=== PATIENT | female | born 1945 | race Caucasian/White ===

== ENCOUNTER 2023-01-25 14:35 | Inpatient (IN) | payer MEDICARE, BC, SELFPAY ==
[2023-01-25] VITALS (7 sets, daily range): BP systolic 79–160; BP diastolic 50–68; PULSE 55–71; RESP 14–18; TEMP 36.6–37; O2SAT 95–97; BMI 41.1
--- NOTE | 2023-01-25 14:41 | ECG_ITS ---
Test Reason : weak/dizzy Blood Pressure : / mmHG Vent. Rate : 056 BPM Atrial Rate : 056 BPM P-R Int : 180 ms QRS Dur : 154 ms QT Int : 492 ms P-R-T Axes : 009 -39 -18 degrees QTc Int : 474 ms Sinus bradycardia Left axis deviation Right bundle branch block T wave abnormality, consider lateral ischemia Abnormal ECG No previous ECGs available Referred By: Anat Cry Electronically Signed By:MODE MENDIOLA MD
--- NOTE | 2023-01-25 14:42 | ED_ITS ---
HPI - Nausea/Vomiting/Diarrhea General Chief complaint: Nausea/Vomiting/Diarrhea <IVIS Waters Last Filed: 01/25/23 15:05> Stated complaint: dehydration/ ligheheaded <IVIS Waters Last Filed: 01/25/23 15:05> Time Seen by Provider: 01/25/23 15:06 <IVIS Waters Last Filed: 01/25/23 15:05> Source: patient and RN notes reviewed <IVIS Nieves Last Filed: 01/25/23 18:18> Mode of arrival: ambulatory <IVIS Nieves Last Filed: 01/25/23 18:18> Limitations: no limitations <IVIS Nieves Last Filed: 01/25/23 18:18> History of Present Illness HPI Narrative: This is a 78-year-old female, with past history of hypertension, hyperlipidemia, diabetes, GERD, who presents emergency department today with complaints of weakness and diarrhea x2 weeks. Patient reports that over the last 2 weeks she has noticed that she is unable to stand for long periods of time as she begins to feel weak throughout her entire body. She reports that several days ago because of this weakness and she had collapsed and was on the ground for approximately 2 hours until she was able to have assistance to get back up. She admits that at that time, she had chest pain, but is unable to report if this is because she was laying on her chest for two hours. She reports that she has not been having diarrhea every day however reports that every time she eats she often times has to run to the restroom. She reports that she has had a total of 3 episodes of diarrhea today, which is most amount of episodes of diarrhea she has had in one day. Denies any bloody or black stool. She denies any nausea, vomiting, or abdominal pain. She denies any fevers or chills. She is scheduled to have a herniated disc repair scheduled for next week. She has been trying [id number] Pepto-Bismol without any relief. No recent antibiotic use. No other complaints or concerns at this time. <IVIS Nieves Last Filed: 01/25/23 18:18> MD elicited complaint: diarrhea <IVIS Nieves Last Filed: 01/25/23 18:18> Description of vomiting: watery <IVIS Nieves - Last Filed: 01/25/23 18:18> Associated nausea: No <IVIS Nieves - Last Filed: 01/25/23 18:18> Associated abdominal pain: No <IVIS Nieves - Last Filed: 01/25/23 18:18> Location of pain: none <IVIS Nieves - Last Filed: 01/25/23 18:18> Exacerbating factors: eating <IVIS Nieves - Last Filed: 01/25/23 18:18> Relieving factors: none <IVIS Nieves - Last Filed: 01/25/23 18:18> Associated symptoms: denies other symptoms <VIIS Nieves - Last Filed: 01/25/23 18:18> Treatment prior to arrival: other OTC medicine <IVIS Nieves - Last Filed: 01/25/23 18:18> Related Data Allergies/Adverse reactions: Allergies Allergy/AdvReac Type Severity Reaction Status Date / Time Unable to Assess Allergy Verified 01/25/23 14:41 <IVIS Waters - Last Filed: 01/25/23 15:05> Review of Systems Review of Systems: Yes all other systems are reviewed and are negative <IVIS Nieves - Last Filed: 01/25/23 18:18> Gastrointestinal: Gastrointestinal: Denies nausea <IVIS Nieves - Last Filed: 01/25/23 18:18> PMF Past Medical History Surgical History: Surgical History Knee joint replacement status <IVIS Waters - Last Filed: 01/25/23 15:05> Social History Social History: Social History Alcohol intake: never Smoked in Last 30 Days: No Use of substances other than those prescribed or required for medical reasons: No Advance Directives: No Advance Directives Information Provided: No <IVIS Waters - Last Filed: 01/25/23 15:05> Physical Exam Vital Signs: Vital Signs: Last Vital Signs Temp 97.8 F 01/25/23 17:35 Pulse 71 01/25/23 17:39 Resp 14 01/25/23 17:35 BP 106/56 L 01/25/23 17:39 Pulse Ox 97 01/25/23 17:35 O2 Del Method Room Air 01/25/23 17:35 BMI result Body Mass Index 41.1 <IVIS Waters - Last Filed: 01/25/23 15:05> Vital Signs: Last Vital Signs Temp 97.8 F 01/25/23 17:35 Pulse 71 01/25/23 17:39 Resp 14 01/25/23 17:35 BP 106/56 L 01/25/23 17:39 Pulse Ox 97 01/25/23 17:35 O2 Del Method Room Air 01/25/23 17:35 BMI result Body Mass Index 41.1 <IVIS Nieves - Last Filed: 01/25/23 18:18> Appearance: Alert. Oriented X3. No acute distress. Eyes: Pupils equal, round and reactive to light. EOMI ENT: Pharynx normal. Dry mucous membranes, Uvula midline Neck: Normal inspection. Neck supple. CVS: Normal heart rate and rhythm. Pulses normal. S1-S2 regular, no murmurs rubs or gallops Respiratory: No respiratory distress. Breath sounds normal. Lungs clear auscultation bilaterally Abdomen: Soft and nontender. +BS x4 Skin: Skin warm and dry. Normal skin color. Normal skin turgor. No rashes. Extremities: No lower extremity edema. Neuro: Oriented X 3. No motor deficit. No sensory deficit. CN II-XII intact. <IVIS Nieves - Last Filed: 01/25/23 18:18> Course Course Course Narrative: RME - 78 y/o female with history of HTN, HLD, DM who presents to the ER from Urgent Care for evaluation of ongoing diarrhea for the last 2 weeks along with poor PO intake, weakness and lightheadedness. Also has intermittent central abdominal pains. BP 70/50s in triage. Nontoxic appearing. Plan: to go to treatment room now - labs, EKG, orthostatics, IVF and stool studies if able <IVIS Waters - Last Filed: 01/25/23 15:05> Reevaluation(s) Reevaluation #1: Creatinine 2.62, with a BUN of 59. Patient has never been here for baseline comparison. Likely pre renal acute kidney injury secondary to dehydration, patient medicated with bolus IV fluids. <IVIS Nieves - Last Filed: 01/25/23 18:18> Time: 15:57 <IVIS Nieves - Last Filed: 01/25/23 18:18> Reevaluation #2: Patient re-evaluated, blood pressure improved to 132/74. 1 L of IV fluids completed will be receiving 2nd liter. Pt is COVID+. Spoke to hospitalist who accepts transfer of care. <IVIS Nieves - Last Filed: 01/25/23 18:18> Time: 16:35 <IVIS Nieves - Last Filed: 01/25/23 18:18> Medications Administered Discontinued Medications Generic Name Dose Route Start Last Admin Trade Name Freq PRN Reason Stop Dose Admin Sodium Chloride 1,000 mls @ 999 mls/hr 01/25/23 14:45 01/25/23 16:45 Ns IVCONT 01/25/23 15:45 Infused .Q1H1M BETTY Infusion Sodium Chloride 1,000 mls @ 999 mls/hr 01/25/23 15:45 01/25/23 18:15 Ns IVCONT 01/25/23 17:45 Infused .Q1H1M BETTY Infusion <IVSI Waters - Last Filed: 01/25/23 15:05> Medications Administered Discontinued Medications Generic Name Dose Route Start Last Admin Trade Name Freq PRN Reason Stop Dose Admin Sodium Chloride 1,000 mls @ 999 mls/hr 01/25/23 14:45 01/25/23 16:45 Ns IVCONT 01/25/23 15:45 Infused .Q1H1M BETTY Infusion Sodium Chloride 1,000 mls @ 999 mls/hr 01/25/23 15:45 01/25/23 18:15 Ns IVCONT 01/25/23 17:45 Infused .Q1H1M BETTY Infusion <IVIS Nieves - Last Filed: 01/25/23 18:18> Medical Decision Making Medical Decision Making MDM Narrative: 78-year-old female presenting to the emergency department today with intermittent diarrhea and weakness x2 weeks. Patient's blood pressure hypotensive at 79/57, all other labs within normal limits. EKG with right bundle branch block with inverted T-waves in V1 through V5, also seen in lead III and AVF. She has no previous EKGs for comparison. Will perform cardiac workup. Plan: Labs, EKG, UA, stool studies obtained. IV hydration. <IVIS Nieves - Last Filed: 01/25/23 18:18> Differential Diagnosis Differential Diagnoses: The differential diagnosis associated with the presentation includes <IVIS Nieves - Last Filed: 01/25/23 18:18> Dehydration, acute kidney injury, C diff, diverticulitis, diverticulosis, diarrhea <IVIS Nieves - Last Filed: 01/25/23 18:18> Consult Healthcare Provider Management of the patient was discussed with: Hospitalist <IVIS Nieves - Last Filed: 01/25/23 18:18> Lab Data MDM Lab Attestation statement: I reviewed the patient's lab results. <IVIS Nieves - Last Filed: 01/25/23 18:18> Result Diagrams: 01/25/23 14:53 01/25/23 14:53 <IVIS Waters - Last Filed: 01/25/23 15:05> Labs: Lab Results 01/25/23 01/25/23 01/25/23 Range/Units 14:53 14:53 14:53 WBC 5.9 (4.8-10.8) X10*3/uL RBC 4.84 (4.20-5.50) X10*6/uL Hgb 13.2 (12.0-16.0) g/dl Hct 40.6 (37.0-47.0) % MCV 83.9 (80.0-98.0) fL MCH 27.3 (27.0-33.0) pg MCHC 32.5 (31.0-35.0) g/dl RDW 14.5 (11.0-16.0) % Plt Count 261 (160-400) X10*3/uL MPV 10.6 (9.4-12.3) fL Immature Gran % (Auto) 0.8 H (0.0-0.4) % Neut % (Auto) 67.9 (45-73) % Lymph % (Auto) 18.4 L (20-40) % [place] % (Auto) 10.7 (2-11) % Eos % (Auto) 1.7 (0-4) % Baso % (Auto) 0.5 (0-2) % Lymph # (Auto) 1.1 L (1.2-4.9) X10*3/uL [place] # (Auto) 0.6 (0.1-1.2) X10*3/uL Eos # (Auto) 0.1 (0.0-0.4) X10*3/uL Baso # (Auto) 0.0 (0.0-0.2) X10*3/uL Abs Immat Gran (auto) 0.05 H (0.00-0.03) X10*3/uL Absolute Neuts (auto) 4.0 (2.0-8.3) x10*3/uL Absolute Nucleated RBC 0.000 (0.0-0.012) X10*3/uL Nucleated RBC % (auto) 0.0 (0.0-0.2) /100WBC Sodium 135 (135-145) mmol/L Potassium 4.3 (3.3-5.1) mmol/L Chloride 98 (96-108) mmol/L Carbon Dioxide 24 (22-29) mmol/L Anion Gap 17 (12-20) BUN 59 H (9-16) mg/dL Creatinine 2.62 H (0.5-1.4) mg/dL Estim Creat Clear Calc 20.4 Estimated GFR 18 Random Glucose 198 H (60-115) mg/dL Calcium 8.9 (8.4-10.2) mg/dL Magnesium 2.3 (1.6-2.6) mg/dL Total Bilirubin 0.7 (0.0-1.0) mg/dL Direct Bilirubin 0.2 (0.0-0.5) mg/dL AST 27 (5-31) U/L ALT 13 (0-31) U/L Alkaline Phosphatase 56 (39-117) U/L Total Creatine Kinase 254 H (26-140) U/L Troponin I High Sens 18.0 H (<3.5-17.0) ng/L B-Natriuretic Peptide (<100) pg/mL Total Protein 7.6 (6.5-8.0) g/dL Albumin 4.3 (3.5-5.0) g/dL Lipase 24 (8-78) U/L Influenza Type A (PCR) (Negative) Influenza Type B (PCR) (Negative) RSV RNA Qual (PCR) (Negative) SARS-CoV-2 RNA (RT-PCR) (Negative) 01/25/23 01/25/23 01/25/23 Range/Units 15:31 15:31 15:31 WBC (4.8-10.8) X10*3/uL RBC (4.20-5.50) X10*6/uL Hgb (12.0-16.0) g/dl Hct (37.0-47.0) % MCV (80.0-98.0) fL MCH (27.0-33.0) pg MCHC (31.0-35.0) g/dl RDW (11.0-16.0) % Plt Count (160-400) X10*3/uL MPV (9.4-12.3) fL Immature Gran % (Auto) (0.0-0.4) % Neut % (Auto) (45-73) % Lymph % (Auto) (20-40) % [place] % (Auto) (2-11) % Eos % (Auto) (0-4) % Baso % (Auto) (0-2) % Lymph # (Auto) (1.2-4.9) X10*3/uL [place] # (Auto) (0.1-1.2) X10*3/uL Eos # (Auto) (0.0-0.4) X10*3/uL Baso # (Auto) (0.0-0.2) X10*3/uL Abs Immat Gran (auto) (0.00-0.03) X10*3/uL Absolute Neuts (auto) (2.0-8.3) x10*3/uL Absolute Nucleated RBC (0.0-0.012) X10*3/uL Nucleated RBC % (auto) (0.0-0.2) /100WBC Sodium (135-145) mmol/L Potassium (3.3-5.1) mmol/L Chloride (96-108) mmol/L Carbon Dioxide (22-29) mmol/L Anion Gap (12-20) BUN (9-16) mg/dL Creatinine (0.5-1.4) mg/dL Estim Creat Clear Calc Estimated GFR Random Glucose (60-115) mg/dL Calcium (8.4-10.2) mg/dL Magnesium (1.6-2.6) mg/dL Total Bilirubin (0.0-1.0) mg/dL Direct Bilirubin (0.0-0.5) mg/dL AST (5-31) U/L ALT (0-31) U/L Alkaline Phosphatase (39-117) U/L Total Creatine Kinase (26-140) U/L Troponin I High Sens (<3.5-17.0) ng/L B-Natriuretic Peptide 57 (<100) pg/mL Total Protein (6.5-8.0) g/dL Albumin (3.5-5.0) g/dL Lipase Cancelled (8-78) U/L Influenza Type A (PCR) NEGATIVE (Negative) Influenza Type B (PCR) NEGATIVE (Negative) RSV RNA Qual (PCR) NEGATIVE (Negative) SARS-CoV-2 RNA (RT-PCR) POSITIVE A (Negative) 01/25/23 Range/Units 17:39 WBC (4.8-10.8) X10*3/uL RBC (4.20-5.50) X10*6/uL Hgb (12.0-16.0) g/dl Hct (37.0-47.0) % MCV (80.0-98.0) fL MCH (27.0-33.0) pg MCHC (31.0-35.0) g/dl RDW (11.0-16.0) % Plt Count (160-400) X10*3/uL MPV (9.4-12.3) fL Immature Gran % (Auto) (0.0-0.4) % Neut % (Auto) (45-73) % Lymph % (Auto) (20-40) % [place] % (Auto) (2-11) % Eos % (Auto) (0-4) % Baso % (Auto) (0-2) % Lymph # (Auto) (1.2-4.9) X10*3/uL [place] # (Auto) (0.1-1.2) X10*3/uL Eos # (Auto) (0.0-0.4) X10*3/uL Baso # (Auto) (0.0-0.2) X10*3/uL Abs Immat Gran (auto) (0.00-0.03) X10*3/uL Absolute Neuts (auto) (2.0-8.3) x10*3/uL Absolute Nucleated RBC (0.0-0.012) X10*3/uL Nucleated RBC % (auto) (0.0-0.2) /100WBC Sodium (135-145) mmol/L Potassium (3.3-5.1) mmol/L Chloride (96-108) mmol/L Carbon Dioxide (22-29) mmol/L Anion Gap (12-20) BUN (9-16) mg/dL Creatinine (0.5-1.4) mg/dL Estim Creat Clear Calc Estimated GFR Random Glucose (60-115) mg/dL Calcium (8.4-10.2) mg/dL Magnesium (1.6-2.6) mg/dL Total Bilirubin (0.0-1.0) mg/dL Direct Bilirubin (0.0-0.5) mg/dL AST (5-31) U/L ALT (0-31) U/L Alkaline Phosphatase (39-117) U/L Total Creatine Kinase (26-140) U/L Troponin I High Sens 14.1 (<3.5-17.0) ng/L B-Natriuretic Peptide (<100) pg/mL Total Protein (6.5-8.0) g/dL Albumin (3.5-5.0) g/dL Lipase (8-78) U/L Influenza Type A (PCR) (Negative) Influenza Type B (PCR) (Negative) RSV RNA Qual (PCR) (Negative) SARS-CoV-2 RNA (RT-PCR) (Negative) <IVIS Waters - Last Filed: 01/25/23 15:05> Lab Results 01/25/23 01/25/23 01/25/23 Range/Units 14:53 14:53 14:53 WBC 5.9 (4.8-10.8) X10*3/uL RBC 4.84 (4.20-5.50) X10*6/uL Hgb 13.2 (12.0-16.0) g/dl Hct 40.6 (37.0-47.0) % MCV 83.9 (80.0-98.0) fL MCH 27.3 (27.0-33.0) pg MCHC 32.5 (31.0-35.0) g/dl RDW 14.5 (11.0-16.0) % Plt Count 261 (160-400) X10*3/uL MPV 10.6 (9.4-12.3) fL Immature Gran % (Auto) 0.8 H (0.0-0.4) % Neut % (Auto) 67.9 (45-73) % Lymph % (Auto) 18.4 L (20-40) % [place] % (Auto) 10.7 (2-11) % Eos % (Auto) 1.7 (0-4) % Baso % (Auto) 0.5 (0-2) % Lymph # (Auto) 1.1 L (1.2-4.9) X10*3/uL [place] # (Auto) 0.6 (0.1-1.2) X10*3/uL Eos # (Auto) 0.1 (0.0-0.4) X10*3/uL Baso # (Auto) 0.0 (0.0-0.2) X10*3/uL Abs Immat Gran (auto) 0.05 H (0.00-0.03) X10*3/uL Absolute Neuts (auto) 4.0 (2.0-8.3) x10*3/uL Absolute Nucleated RBC 0.000 (0.0-0.012) X10*3/uL Nucleated RBC % (auto) 0.0 (0.0-0.2) /100WBC Sodium 135 (135-145) mmol/L Potassium 4.3 (3.3-5.1) mmol/L Chloride 98 (96-108) mmol/L Carbon Dioxide 24 (22-29) mmol/L Anion Gap 17 (12-20) BUN 59 H (9-16) mg/dL Creatinine 2.62 H (0.5-1.4) mg/dL Estim Creat Clear Calc 20.4 Estimated GFR 18 Random Glucose 198 H (60-115) mg/dL Calcium 8.9 (8.4-10.2) mg/dL Magnesium 2.3 (1.6-2.6) mg/dL Total Bilirubin 0.7 (0.0-1.0) mg/dL Direct Bilirubin 0.2 (0.0-0.5) mg/dL AST 27 (5-31) U/L ALT 13 (0-31) U/L Alkaline Phosphatase 56 (39-117) U/L Total Creatine Kinase 254 H (26-140) U/L Troponin I High Sens 18.0 H (<3.5-17.0) ng/L B-Natriuretic Peptide (<100) pg/mL Total Protein 7.6 (6.5-8.0) g/dL Albumin 4.3 (3.5-5.0) g/dL Lipase 24 (8-78) U/L Influenza Type A (PCR) (Negative) Influenza Type B (PCR) (Negative) RSV RNA Qual (PCR) (Negative) SARS-CoV-2 RNA (RT-PCR) (Negative) 01/25/23 01/25/23 01/25/23 Range/Units 15:31 15:31 15:31 WBC (4.8-10.8) X10*3/uL RBC (4.20-5.50) X10*6/uL Hgb (12.0-16.0) g/dl Hct (37.0-47.0) % MCV (80.0-98.0) fL MCH (27.0-33.0) pg MCHC (31.0-35.0) g/dl RDW (11.0-16.0) % Plt Count (160-400) X10*3/uL MPV (9.4-12.3) fL Immature Gran % (Auto) (0.0-0.4) % Neut % (Auto) (45-73) % Lymph % (Auto) (20-40) % [place] % (Auto) (2-11) % Eos % (Auto) (0-4) % Baso % (Auto) (0-2) % Lymph # (Auto) (1.2-4.9) X10*3/uL [place] # (Auto) (0.1-1.2) X10*3/uL Eos # (Auto) (0.0-0.4) X10*3/uL Baso # (Auto) (0.0-0.2) X10*3/uL Abs Immat Gran (auto) (0.00-0.03) X10*3/uL Absolute Neuts (auto) (2.0-8.3) x10*3/uL Absolute Nucleated RBC (0.0-0.012) X10*3/uL Nucleated RBC % (auto) (0.0-0.2) /100WBC Sodium (135-145) mmol/L Potassium (3.3-5.1) mmol/L Chloride (96-108) mmol/L Carbon Dioxide (22-29) mmol/L Anion Gap (12-20) BUN (9-16) mg/dL Creatinine (0.5-1.4) mg/dL Estim Creat Clear Calc Estimated GFR Random Glucose (60-115) mg/dL Calcium (8.4-10.2) mg/dL Magnesium (1.6-2.6) mg/dL Total Bilirubin (0.0-1.0) mg/dL Direct Bilirubin (0.0-0.5) mg/dL AST (5-31) U/L ALT (0-31) U/L Alkaline Phosphatase (39-117) U/L Total Creatine Kinase (26-140) U/L Troponin I High Sens (<3.5-17.0) ng/L B-Natriuretic Peptide 57 (<100) pg/mL Total Protein (6.5-8.0) g/dL Albumin (3.5-5.0) g/dL Lipase Cancelled (8-78) U/L Influenza Type A (PCR) NEGATIVE (Negative) Influenza Type B (PCR) NEGATIVE (Negative) RSV RNA Qual (PCR) NEGATIVE (Negative) SARS-CoV-2 RNA (RT-PCR) POSITIVE A (Negative) 01/25/23 Range/Units 17:39 WBC (4.8-10.8) X10*3/uL RBC (4.20-5.50) X10*6/uL Hgb (12.0-16.0) g/dl Hct (37.0-47.0) % MCV (80.0-98.0) fL MCH (27.0-33.0) pg MCHC (31.0-35.0) g/dl RDW (11.0-16.0) % Plt Count (160-400) X10*3/uL MPV (9.4-12.3) fL Immature Gran % (Auto) (0.0-0.4) % Neut % (Auto) (45-73) % Lymph % (Auto) (20-40) % [place] % (Auto) (2-11) % Eos % (Auto) (0-4) % Baso % (Auto) (0-2) % Lymph # (Auto) (1.2-4.9) X10*3/uL [place] # (Auto) (0.1-1.2) X10*3/uL Eos # (Auto) (0.0-0.4) X10*3/uL Baso # (Auto) (0.0-0.2) X10*3/uL Abs Immat Gran (auto) (0.00-0.03) X10*3/uL Absolute Neuts (auto) (2.0-8.3) x10*3/uL Absolute Nucleated RBC (0.0-0.012) X10*3/uL Nucleated RBC % (auto) (0.0-0.2) /100WBC Sodium (135-145) mmol/L Potassium (3.3-5.1) mmol/L Chloride (96-108) mmol/L Carbon Dioxide (22-29) mmol/L Anion Gap (12-20) BUN (9-16) mg/dL Creatinine (0.5-1.4) mg/dL Estim Creat Clear Calc Estimated GFR Random Glucose (60-115) mg/dL Calcium (8.4-10.2) mg/dL Magnesium (1.6-2.6) mg/dL Total Bilirubin (0.0-1.0) mg/dL Direct Bilirubin (0.0-0.5) mg/dL AST (5-31) U/L ALT (0-31) U/L Alkaline Phosphatase (39-117) U/L Total Creatine Kinase (26-140) U/L Troponin I High Sens 14.1 (<3.5-17.0) ng/L B-Natriuretic Peptide (<100) pg/mL Total Protein (6.5-8.0) g/dL Albumin (3.5-5.0) g/dL Lipase (8-78) U/L Influenza Type A (PCR) (Negative) Influenza Type B (PCR) (Negative) RSV RNA Qual (PCR) (Negative) SARS-CoV-2 RNA (RT-PCR) (Negative) <IVIS Nieves Last Filed: 01/25/23 18:18> Independent Interpretation I performed an independent interpretation of an: EKG <IVIS Nieves Last Filed: 01/25/23 18:18> Interpretation: Sinus bradycardia with a ventricular rate of 56, RBBB - ST depression seen in V1-V5, ID interval 180ms, QRS [id number], QT/QTC 492/474. No previous EKG for comparison. <IVIS Nieves Last Filed: 01/25/23 18:18> Chronic Conditions Patient?s care impacted by: Diabetes and Hypertension <IVIS Nieves Last Filed: 01/25/23 18:18> Discharge Plan Discharge Clinical Impression: Acute kidney injury, COVID-19, Weakness <IVIS Waters Last Filed: 01/25/23 15:05> Patient Disposition: Admitted As Inpatient <IVIS Waters Last Filed: 01/25/23 15:05>
[2023-01-25 14:57] LABS: MANUAL DIFF FLAG NO
[2023-01-25 15:02] LABS: Basophils Percent Auto 0.5 % (0-2); Eosinophils Absolute Auto 0.1 X10*3/uL (0.0-0.4); Eosinophils Percent Auto 1.7 % (0-4); Hematocrit 40.6 % (37.0-47.0); Hemoglobin 13.2 g/dl (12.0-16.0); Imm Gran Abs Auto 0.05 X10*3/uL (0.00-0.03); Imm Gran Pct Auto 0.8 % (0.0-0.4); Lymphocytes Absolute Auto 1.1 X10*3/uL (1.2-4.9); Lymphocytes Percent Auto 18.4 % (20-40); Mean Corpuscular HGB Conc 32.5 g/dl (31.0-35.0); Mean Corpuscular Hemoglobin 27.3 pg (27.0-33.0); Mean Corpuscular Volume 83.9 fL (80.0-98.0); Mean Platelet Volume 10.6 fL (9.4-12.3); Monocytes Absolute Auto 0.6 X10*3/uL (0.1-1.2); Monocytes Percent Auto 10.7 % (2-11); Neutrophils Percent Auto 67.9 % (45-73); Platelet Count 261 X10*3/uL (160-400); Red Blood Count 4.84 X10*6/uL (4.20-5.50); Red Cell Distribution Width 14.5 % (11.0-16.0); White Blood Count 5.9 X10*3/uL (4.8-10.8)
[2023-01-25 15:16] LABS: Alanine Aminotransferase 13 U/L (0-31); Albumin Level 4.3 g/dL (3.5-5.0); Alkaline Phosphatase 56 U/L (39-117); Anion Gap 17 (12-20); Aspartate Amino Transferase 27 U/L (5-31); Bilirubin Direct 0.2 mg/dL (0.0-0.5); Bilirubin Total 0.7 mg/dL (0.0-1.0); Blood Urea Nitrogen 59 mg/dL (9-16); Calcium 8.9 mg/dL (8.4-10.2); Carbon Dioxide 24 mmol/L (22-29); Chloride 98 mmol/L (96-108); Creatinine Clr Calc Pharmacy 20.4; Estimated Glomerular Filt Rate 18; Glucose Random 198 mg/dL (60-115); Magnesium 2.3 mg/dL (1.6-2.6); Potassium 4.3 mmol/L (3.3-5.1); Sodium 135 mmol/L (135-145); Total Protein 7.6 g/dL (6.5-8.0)
[2023-01-25] MEDS: 0.9 % Sodium Chloride 1,000 ML 999 ML IVCONT ×3 (15:36→17:14)
[2023-01-25 15:59] LABS: B Type Natriuretic Peptide 57 pg/mL (<100)
[2023-01-25 16:04] LABS: Lipase 24 U/L (8-78)
[2023-01-25 16:19] LABS: Influenza A PCR NEGATIVE (Negative); Influenza B PCR NEGATIVE (Negative); Resp Syncy Virus RNA Qual PCR NEGATIVE (Negative); SARS COV2 PCR INHOUSE POSITIVE (Negative)
[2023-01-25 18:10] LABS: Troponin-I High Sensitivity 14.1 ng/L (<3.5-17.0)
--- NOTE | 2023-01-25 19:24 | PHA.MEDREC ---
MED REC COMPLETE, NO ISSUES Pharmacy Consult ? Medication Reconciliation Pharmacy has completed the medication reconciliation.
--- NOTE | 2023-01-25 20:13 | P.HPHOSP_ITS ---
Patient seen and examined, agree with the findings in the note below including assessment and plan. Patient comes in with generalized weakness, diarrhea, positive creatinine, found to have ALIZA. Diarrhea likely secondary to gastroenteritis in the setting of COVID infection. No respiratory symptoms. ALIZA secondary to dehydration, will treat with IV fluids. Patient does have evidence of abnormal EKG but present on previous EKGs obtained from [facility]. For full H&P please see below History of Present Illness Date of Service: 01/25/23 Attending physician on admission: Jody Fang Chief Complaint: Generalized weakness, diarrhea Pt is a 78-year-old female with a PMH significant for?HTN, HLD, CAD, vbk-cpmifrr-fdrmzyaif diabetes, and GERD who presents to the ED with?generalized weakness and diarrhea for the past 1-2 weeks. Patient states that she first began feeling weak, especially in her arms and legs. Has been unable to stand for long or cook herself a meal. Soon after developed non-bloody diarrhea that would come and go, usually 2-3 episodes per day. Diarrhea was on non-consecutive days, usually with 1-2 days between episodes. Pt has noted decreased p.o. inta ke, especially of solids. Says she feels lousy and has had all-over body aches. Pt also reports some burning with urination for past 1-2 weeks. Of note, pt states she tripped and fell in her kitchen two days ago. Did not have her phone and was on the ground for nearly two hours before she could raise herself. Denies fever, chills, nausea, vomiting. No abdominal pain. Denies chest pain/pressure, palpitations. No shortness of breath, difficulty breathing, cough. In the ED patient was afebrile but hypotensive at 79/57, improved to 106/56 after 1L IVF. Labs were significant for no leukocytosis, creatinine of 2.62, BUN 59, random glucose of 198, creatinine kinase of 254, initial troponin high at 18.0 with repeat down trending to 14.1. Patient tested positive for COVID. EKG demonstrated sinus bradycardia with a rate of 56, RBBB, ST depression in lead I, T-wave inversions in 3, AVF, V1-V5. Pt was treated with 2L IVF. Pt will be admitted to the hospital for treatment and further evaluation of ALIZA and generalized weakness. Review of Systems Review of Systems: Generalized weakness Diarrhea Myalgias Dysuria Denies fever, chills, nausea, vomiting, abdominal pain No shortness of breath, cough, difficulty breathing Denies chest pain/pressure, palpitations Yes all other systems are reviewed and are negative PENDING SALE TO [facility] Surgical History Knee joint replacement status Social History Alcohol intake: never Smoked in Last 30 Days: No Use of substances other than those prescribed or required for medical reasons: No Advance Directives: No Advance Directives Information Provided: No Meds Allergies Allergy/AdvReac Type Severity Reaction Status Date / Time Unable to Assess Allergy Verified 01/25/23 14:41 Active Medications: Current Medications Pharmacy Consult (Consult Rx Perform Med Rec) 1 each MISCELLANE ONCE PRN PRN Reason: Consult order Home Medications Medication Instructions Recorded Confirmed Last Taken Type amlodipine 5 mg tablet 5 mg PO BID 01/25/23 01/25/23 01/25/23 History atorvastatin 80 mg tablet 80 mg PO BEDTIME 01/25/23 01/25/23 01/24/23 History carvedilol 12.5 mg tablet 12.5 mg PO BID 01/25/23 01/25/23 01/25/23 History isosorbide mononitrate 30 mg 30 mg PO DAILY 01/25/23 01/25/23 01/25/23 History tablet,extended release 24 hr isosorbide mononitrate 60 mg 60 mg PO DAILY 01/25/23 01/25/23 01/25/23 History tablet,extended release 24 hr losartan 100 mg tablet 100 mg PO DAILY 01/25/23 01/25/23 01/25/23 History metformin 500 mg tablet,extended 500 mg PO BID 01/25/23 01/25/23 01/25/23 History release 24 hr nitroglycerin 0.4 mg sublingual 0.4 mg sublingual Q5M PRN Chest 01/25/23 01/25/23 Unknown History tablet Pain omeprazole 20 mg tablet,delayed 20 mg PO DAILY 01/25/23 01/25/23 01/25/23 History release Physical Exam Vital Signs and Narrative: Vital Signs: Last Vital Signs Temp 97.8 F 01/25/23 17:35 Pulse 71 01/25/23 17:39 Resp 14 01/25/23 17:35 BP 106/56 L 01/25/23 17:39 Pulse Ox 97 01/25/23 17:35 O2 Del Method Room Air 01/25/23 17:35 BMI result Body Mass Index 41.1 Constitutional: Alert, in no acute distress. Mental Status: Oriented to person, place and time. Eyes: Pupils are equal, round, and reactive to light. Ear, Nose, and Throat: Oropharynx clear, mucous membranes moist. Ears and nose without deformities. Trachea midline. Respiratory: Clear to auscultation bilaterally. No wheezing, rales, or rhonchi. Cardiovascular: S1, S2 regular. No murmurs, rubs, or gallops. Gastrointestinal: Abdomen soft, non-tender, non-distended. Normal bowel sounds. Neurologic: Cranial nerves II-XII are grossly intact bilaterally. No focal neurological deficits. Moves all extremities spontaneously. Skin: Bruising on right forearm. Musculoskeletal: No cyanosis or clubbing. Extremities: No edema. Psychiatric: Normal mood and affect. Results Labs 01/25/23 14:53 01/25/23 14:53 Labs: Laboratory Results - last 24 hr 01/25/23 01/25/23 01/25/23 14:53 14:53 14:53 MCV 83.9 MCH 27.3 MCHC 32.5 RDW 14.5 Plt Count 261 MPV 10.6 Immature Gran % (Auto) 0.8 H Neut % (Auto) 67.9 Lymph % (Auto) 18.4 L [place] % (Auto) 10.7 Eos % (Auto) 1.7 Baso % (Auto) 0.5 Lymph # (Auto) 1.1 L [place] # (Auto) 0.6 Eos # (Auto) 0.1 Baso # (Auto) 0.0 Abs Immat Gran (auto) 0.05 H Absolute Neuts (auto) 4.0 Absolute Nucleated RBC 0.000 Nucleated RBC % (auto) 0.0 Anion Gap 17 Estim Creat Clear Calc 20.4 Estimated GFR 18 Random Glucose 198 H Calcium 8.9 Magnesium 2.3 Total Bilirubin 0.7 Direct Bilirubin 0.2 AST 27 ALT 13 Alkaline Phosphatase 56 Total Creatine Kinase 254 H Troponin I High Sens 18.0 H B-Natriuretic Peptide Total Protein 7.6 Albumin 4.3 Lipase 24 Influenza Type A (PCR) Influenza Type B (PCR) RSV RNA Qual (PCR) SARS-CoV-2 RNA (RT-PCR) 01/25/23 01/25/23 01/25/23 15:31 15:31 15:31 MCV MCH MCHC RDW Plt Count MPV Immature Gran % (Auto) Neut % (Auto) Lymph % (Auto) [place] % (Auto) Eos % (Auto) Baso % (Auto) Lymph # (Auto) [place] # (Auto) Eos # (Auto) Baso # (Auto) Abs Immat Gran (auto) Absolute Neuts (auto) Absolute Nucleated RBC Nucleated RBC % (auto) Anion Gap Estim Creat Clear Calc Estimated GFR Random Glucose Calcium Magnesium Total Bilirubin Direct Bilirubin AST ALT Alkaline Phosphatase Total Creatine Kinase Troponin I High Sens B-Natriuretic Peptide 57 Total Protein Albumin Lipase Cancelled Influenza Type A (PCR) NEGATIVE Influenza Type B (PCR) NEGATIVE RSV RNA Qual (PCR) NEGATIVE SARS-CoV-2 RNA (RT-PCR) POSITIVE A 01/25/23 17:39 MCV MCH MCHC RDW Plt Count MPV Immature Gran % (Auto) Neut % (Auto) Lymph % (Auto) [place] % (Auto) Eos % (Auto) Baso % (Auto) Lymph # (Auto) [place] # (Auto) Eos # (Auto) Baso # (Auto) Abs Immat Gran (auto) Absolute Neuts (auto) Absolute Nucleated RBC Nucleated RBC % (auto) Anion Gap Estim Creat Clear Calc Estimated GFR Random Glucose Calcium Magnesium Total Bilirubin Direct Bilirubin AST ALT Alkaline Phosphatase Total Creatine Kinase Troponin I High Sens 14.1 B-Natriuretic Peptide Total Protein Albumin Lipase Influenza Type A (PCR) Influenza Type B (PCR) RSV RNA Qual (PCR) SARS-CoV-2 RNA (RT-PCR) Assessment and Plan (1) Acute kidney injury: Status: Acute (2) COVID-19: Status: Acute Plan Pt is a 78-year-old female with a PMH significant for?HTN, HLD, CAD, [id number] diabetes, and GERD who presents to the ED with?generalized weakness and diarrhea for the past 1-2 weeks. Patient will be admitted to the hospital for treatment and further evaluation of ALIZA, diarrhea, and generalized weakness. Diarrhea, generalized weakness Etiology unclear: Patient afebrile, no leukocytosis, not complaining of abdominal pain, abdominal exam benign Possibly secondary to gastroenteritis Check GI panel, C diff, UA Treat with IV fluids Clear liquid diet for now, advance as tolerated ALIZA Patient's creatinine 2.62 at time of presentation Likely secondary to dehydration from diarrhea, reduced p.o. intake Patient received 2 L of IVF in the ED Place on maintenance fluids: Lactated Ringer's Follow BMP Abnormal EKG EKG demonstrated sinus bradycardia with a rate of 56, RBBB, ST depression in lead I, T-wave inversions in 3, AVF, V1-V5 Pt without chest pain/pressure, palpitations No previous EKG to compare to Will get previous EKG from [facility] Admit to telemetry Dysuria Pt complains of dysuria for past 1-2 weeks, no CVA tenderness, fever, WBC Check UA Hold off on antibiotics for now COVID+ Pt tested positive for COVID Received initial two shots, no boosters Asymptomtic: no SOB, cough, difficulty breathing, not on supplemental O2 Admit with droplet and contact precautions Elevated troponins Initial troponin 18.0 with repeat down trending to 14.1 Likely type 2 demand ischemia in the presence of dehydration IVF CAD/Unstable angina Chronic, has been on her medications for years Continue isosorbide monitrate, nitroglycerin HTN BP soft, hold anti-hypertensives for now GERD Continue omeprazole HLD Continue statin Time Spent With Patient Time: Total time managing care of this patient today ____ minutes. Quality Stroke Does the patient have a stroke diagnosis?: No VTE Prior VTE?: No VTE Risk Level:: Medical - moderate - high VTE Device Contraindication: Treatment Not Indicated VTE Drug Contraindication: N/A - Med Ordered
--- NOTE | 2023-01-25 21:06 | MHC.EDTECH ---
Called [facility] Medical Records at 2106 per Annalisa Villafana to obtain records on patient,awaiting fax at this time.
[2023-01-25 21:30] LABS: Appearance Urine Cloudy; Color Urine Yellow; Glucose Urine UA Negative (Negative); Leukocyte Esterase Urine Trace (Negative); Nitrite Urine Negative (Negative); PH 5.5 (5.0-9.0); UMIC TRIGGER UACC YES; Urine Blood Trace (Negative); Urine Ketones Negative (Negative); Urine Protein Negative (Neg-Trace)
--- NOTE | 2023-01-25 21:33 | PC.NURSE ---
this rn assisted pt to bedside commode. urine and stool samples obtained and sent down to lab. pt repositioned back to bed. pt resting comfortably on back at this time. no new needs per pt
[2023-01-25 21:50] LABS: Bacteria Urine Trace (None Seen); WBC Urine 0-5 /HPF (0-5)
[2023-01-25] MEDS: Enoxaparin Sodium 30 MG/0.3 ML SYRINGE SUBCUT (21:59)
[2023-01-25] MEDS: Lactated Ringers 1,000 ML 100 ML IVCONT (21:59)
--- NOTE | 2023-01-25 22:10 | PC.NURSE ---
pt medicated according to mar. pt resting on stretcher at this time. vss. no new needs at this time
[2023-01-25 22:18] LABS: CDiff Gene PCR NEGATIVE (Negative)
[2023-01-25] MEDS: Atorvastatin Calcium 80 MG TABLET PO (22:35)
[2023-01-26 04:00] VITALS: BP 169/70; PULSE 63; RESP 18; TEMP 37.1; O2SAT 96
[2023-01-26] MEDS: Omeprazole 20 MG CAPSULE.DR PO (06:21)
[2023-01-26 07:20] VITALS: BMI 41.1
[2023-01-26 07:30] VITALS: BP 160/68; PULSE 67; RESP 18; TEMP 36.9; O2SAT 97
[2023-01-26 07:40] LABS: Glucose, Whole Blood 158 mg/dL (60-115)
[2023-01-26 08:10] LABS: Anion Gap 19 (12-20); Blood Urea Nitrogen 35 mg/dL (9-16); Calcium 8.6 mg/dL (8.4-10.2); Carbon Dioxide 21 mmol/L (22-29); Chloride 104 mmol/L (96-108); Creatinine Clr Calc Pharmacy 42.5; Estimated Glomerular Filt Rate 41; Glucose Random 148 mg/dL (60-115); Potassium 3.7 mmol/L (3.3-5.1); Sodium 140 mmol/L (135-145)
[2023-01-26] MEDS: Insulin Lispro 100 UNIT/ML 3 ML VIAL SUBCUT ×2 (09:01→20:37)
[2023-01-26] MEDS: Isosorbide Mononitrate 60 MG TAB.ER.24H PO (09:02)
[2023-01-26] MEDS: Isosorbide Mononitrate 30 MG TAB.ER.24H PO (09:02)
[2023-01-26] MEDS: carvediloL 12.5 MG TABLET PO ×2 (09:02→20:37)
[2023-01-26] MEDS: Lactated Ringers 1,000 ML 100 ML IVCONT (09:08)
--- NOTE | 2023-01-26 10:25 | MHC.CM.PN ---
Pt admitted with generalized weakness, ALIZA, diarrhea, covid +. Pt previously independent, retired, and was living alone at home. Pt wishes to return home without services once medically cleared, pts friend Evy will transport. Pt educated on HCP and declined. Pt uses a rolling walker and grab bars in the shower for assistance. PCP: Dr. Suman Douglas Vax: x2 pfizer
--- NOTE | 2023-01-26 10:56 | P.PNIM_ITS ---
Subjective Subjective Date of Service: 01/26/23 Interval History: Being followed for generalized weakness and diarrhea, patient awake alert feeling significantly better, no further bowel movements since last evening, denies nausea, no vomiting, no abdominal pain, denies lightheadedness, no dizziness no other acute events since admission, no fevers, no chills. Review of Systems Review of Systems: Yes all other systems are reviewed and are negative Physical Exam Vital Signs: Vital Signs: Last Vital Signs Temp 98.5 F 01/26/23 07:30 Pulse 67 01/26/23 07:30 Resp 18 01/26/23 07:30 BP 160/68 H 01/26/23 07:30 Pulse Ox 97 01/26/23 07:30 O2 Del Method Room Air 01/26/23 07:30 BMI result Body Mass Index 41.1 Const: Other: General awake alert x3, resting comfortably in no acute distress. Neck supple no JVD. CVS regular rate rhythm, Respiratory lungs clear to auscultation, no respiratory distress, no wheeze, no rhonchi. Gastrointestinal abdomen soft, nontender, bowel sounds audible, no guarding , no rigidity. Extremities no edema. Neuro nonfocal Skin no rash Psych appropriate affect Objective Data Active Medications Acetaminophen (Acetaminophen 325 Mg Tablet) 650 mg PO Q6H PRN PRN Reason: Pain, Mild (Pain Scale 1-3) Atorvastatin Calcium (Atorvastatin Calcium 80 Mg Tablet) 80 mg PO BEDTIME [facility] Last Admin: 01/25/23 22:35 Dose: 80 mg Documented By: NABEEL Carvedilol (Carvedilol 12.5 Mg Tablet) 12.5 mg PO BID [facility]; Protocol Last Admin: 01/26/23 09:02 Dose: 12.5 mg Documented By: JAYLAN Enoxaparin Sodium (Enoxaparin Sodium 30 Mg/0.3 Ml Syringe) 30 mg SUBCUT Q24H [facility] Last Admin: 01/25/23 21:59 Dose: 30 mg Documented By: NABEEL Glucose (Glucose Gel 15 Gm Gel..Gram.) 15 gm PO Q15M PRN; Protocol PRN Reason: per Hypoglycemia Standing Ord. Lactated Ringer's (Lr) 1,000 mls @ 100 mls/hr IVCONT .Q10H [facility] Last Admin: 01/26/23 09:08 Dose: 100 mls/hr Documented By: JAYLAN Dextrose (D10) 250 mls @ 750 mls/hr IV Q15M PRN; Protocol PRN Reason: per Hypoglycemia Standing Ord. Insulin Human Lispro (Insulin Lispro 100 Unit/Ml 3 Ml Vial) 0 unit SUBCUT QIDACHS [facility]; Protocol Last Admin: 01/26/23 09:01 Dose: 2 unit Documented By: JAYLAN Isosorbide Mononitrate (Isosorbide Mononitrate 30 Mg Tab.Er.24h) 30 mg PO DAILY [facility]; Protocol Last Admin: 01/26/23 09:02 Dose: 30 mg Documented By: JAYLAN Isosorbide Mononitrate (Isosorbide Mononitrate 60 Mg Tab.Er.24h) 60 mg PO DAILY [facility]; Protocol Last Admin: 01/26/23 09:02 Dose: 60 mg Documented By: JAYLAN Nitroglycerin (Nitroglycerin 0.4 Mg Tab.Subl) 0.4 mg SUBLINGUAL Q5M PRN PRN Reason: Chest Pain Omeprazole (Omeprazole 20 Mg Capsule.Dr) 20 mg PO DAILY@0630 [facility] Last Admin: 01/26/23 06:21 Dose: 20 mg Documented By: REJI Ondansetron HCl (Ondansetron Hcl 4 Mg/2 Ml Vial) 4 mg IVPUSH Q8H PRN PRN Reason: Nausea and Vomiting Pharmacy Consult (Consult Rx Perform Med Rec) 1 each MISCELLANE ONCE PRN PRN Reason: Consult order Sodium Chloride (0.9 % Sodium Chloride Flush 3 Ml Syringe) 3 ml IVFLUSH QSHIFT [facility] Last Admin: 01/26/23 09:03 Dose: Not Given Documented By: JAYLAN Non-Admin Reason: IV Running Labs 01/25/23 14:53 01/26/23 06:15 Labs: Laboratory Results - last 24 hr 01/25/23 01/25/23 01/25/23 14:53 14:53 14:53 MCV 83.9 MCH 27.3 MCHC 32.5 RDW 14.5 Plt Count 261 MPV 10.6 Immature Gran % (Auto) 0.8 H Neut % (Auto) 67.9 Lymph % (Auto) 18.4 L [place] % (Auto) 10.7 Eos % (Auto) 1.7 Baso % (Auto) 0.5 Lymph # (Auto) 1.1 L [place] # (Auto) 0.6 Eos # (Auto) 0.1 Baso # (Auto) 0.0 Abs Immat Gran (auto) 0.05 H Absolute Neuts (auto) 4.0 Absolute Nucleated RBC 0.000 Nucleated RBC % (auto) 0.0 Anion Gap 17 Estim Creat Clear Calc 20.4 Estimated GFR 18 POC Glucose Random Glucose 198 H Calcium 8.9 Magnesium 2.3 Total Bilirubin 0.7 Direct Bilirubin 0.2 AST 27 ALT 13 Alkaline Phosphatase 56 Total Creatine Kinase 254 H Troponin I High Sens 18.0 H B-Natriuretic Peptide Total Protein 7.6 Albumin 4.3 Lipase 24 Urine Color Urine Appearance Urine pH Ur Specific [place] Urine Protein Urine Glucose (UA) Urine Ketones Urine Blood Urine Nitrite Ur Leukocyte Esterase Urine RBC Urine WBC Ur Squamous Epith Cells Urine Bacteria Hyaline Casts C. difficile Tox B Gene Influenza Type A (PCR) Influenza Type B (PCR) RSV RNA Qual (PCR) SARS-CoV-2 RNA (RT-PCR) 01/25/23 01/25/23 01/25/23 15:31 15:31 15:31 MCV MCH MCHC RDW Plt Count MPV Immature Gran % (Auto) Neut % (Auto) Lymph % (Auto) [place] % (Auto) Eos % (Auto) Baso % (Auto) Lymph # (Auto) [place] # (Auto) Eos # (Auto) Baso # (Auto) Abs Immat Gran (auto) Absolute Neuts (auto) Absolute Nucleated RBC Nucleated RBC % (auto) Anion Gap Estim Creat Clear Calc Estimated GFR POC Glucose Random Glucose Calcium Magnesium Total Bilirubin Direct Bilirubin AST ALT Alkaline Phosphatase Total Creatine Kinase Troponin I High Sens B-Natriuretic Peptide 57 Total Protein Albumin Lipase Cancelled Urine Color Urine Appearance Urine pH Ur Specific [place] Urine Protein Urine Glucose (UA) Urine Ketones Urine Blood Urine Nitrite Ur Leukocyte Esterase Urine RBC Urine WBC Ur Squamous Epith Cells Urine Bacteria Hyaline Casts C. difficile Tox B Gene Influenza Type A (PCR) NEGATIVE Influenza Type B (PCR) NEGATIVE RSV RNA Qual (PCR) NEGATIVE SARS-CoV-2 RNA (RT-PCR) POSITIVE A 01/25/23 01/25/23 01/25/23 17:39 21:23 21:23 MCV MCH MCHC RDW Plt Count MPV Immature Gran % (Auto) Neut % (Auto) Lymph % (Auto) [place] % (Auto) Eos % (Auto) Baso % (Auto) Lymph # (Auto) [place] # (Auto) Eos # (Auto) Baso # (Auto) Abs Immat Gran (auto) Absolute Neuts (auto) Absolute Nucleated RBC Nucleated RBC % (auto) Anion Gap Estim Creat Clear Calc Estimated GFR POC Glucose Random Glucose Calcium Magnesium Total Bilirubin Direct Bilirubin AST ALT Alkaline Phosphatase Total Creatine Kinase Troponin I High Sens 14.1 B-Natriuretic Peptide Total Protein Albumin Lipase Urine Color Yellow Urine Appearance Cloudy Urine pH 5.5 Ur Specific [place] 1.010 Urine Protein Negative Urine Glucose (UA) Negative Urine Ketones Negative Urine Blood Trace H Urine Nitrite Negative Ur Leukocyte Esterase Trace H Urine RBC 3-5 H Urine WBC 0-5 Ur Squamous Epith Cells 11-20 Urine Bacteria Trace Hyaline Casts 6-10 C. difficile Tox B Gene NEGATIVE Influenza Type A (PCR) Influenza Type B (PCR) RSV RNA Qual (PCR) SARS-CoV-2 RNA (RT-PCR) 01/26/23 01/26/23 06:15 07:32 MCV MCH MCHC RDW Plt Count MPV Immature Gran % (Auto) Neut % (Auto) Lymph % (Auto) [place] % (Auto) Eos % (Auto) Baso % (Auto) Lymph # (Auto) [place] # (Auto) Eos # (Auto) Baso # (Auto) Abs Immat Gran (auto) Absolute Neuts (auto) Absolute Nucleated RBC Nucleated RBC % (auto) Anion Gap 19 Estim Creat Clear Calc 42.5 Estimated GFR 41 POC Glucose 158 H Random Glucose 148 H Calcium 8.6 Magnesium Total Bilirubin Direct Bilirubin AST ALT Alkaline Phosphatase Total Creatine Kinase Troponin I High Sens B-Natriuretic Peptide Total Protein Albumin Lipase Urine Color Urine Appearance Urine pH Ur Specific [place] Urine Protein Urine Glucose (UA) Urine Ketones Urine Blood Urine Nitrite Ur Leukocyte Esterase Urine RBC Urine WBC Ur Squamous Epith Cells Urine Bacteria Hyaline Casts C. difficile Tox B Gene Influenza Type A (PCR) Influenza Type B (PCR) RSV RNA Qual (PCR) SARS-CoV-2 RNA (RT-PCR) Assessment and Plan (1) Acute kidney injury: Status: Acute (2) COVID-19: Status: Acute (3) Weakness: Status: Acute Plan 78-year-old female with a PMH significant for?HTN, HLD, CAD, dmd-cnmimmb-eoyvjhfca diabetes, and GERD who presents to the ED with?generalized weakness and diarrhea for the past 1-2 weeks.? Patient will be admitted to the hospital for treatment and further evaluation of ALIZA, diarrhea, and generalized weakness. Diarrhea, generalized weakness No recurrent episodes of diarrhea since last night,pt. afebrile, no leukocytosis, abdominal exam benign C diff and stool panel negative Will advance diet, follow clinical course ALIZA creatinine 2.62 at time of presentation likely pre renal treated with IV fluids renal function improved Follow BMP Abnormal EKG EKG demonstrated sinus bradycardia with a rate of 56, RBBB, ST depression in barrera d I, T-wave inversions in 3, AVF, V1-V5 no chest pain/pressure, palpitations, flat troponin No previous EKG to compare to Dysuria improved UA benign COVID+ Received initial two shots, no boosters Asymptomtic: no SOB, cough, difficulty breathing, no hypoxia Symptomatic treatment, Continue droplet and contact precautions CAD/Unstable angina continue isosorbide monitrate, statin and Coreg HTN resume home medications GERD Continue omeprazole HLD Continue statin Patient will need continued inpatient hospitalization due to generalized weakness, diarrhea and ALIZA . Time Spent With Patient Time: Total time managing care of this patient today ____ minutes. Quality Stroke Does the patient have a stroke diagnosis?: No VTE Prior VTE?: No VTE Risk Level:: Medical - moderate - high VTE Device Contraindication: Treatment Not Indicated VTE Drug Contraindication: N/A - Med Ordered
[2023-01-26 11:20] VITALS: BP 155/67; PULSE 69; RESP 18; TEMP 36.7; O2SAT 99
[2023-01-26 11:34] LABS: Glucose, Whole Blood 131 mg/dL (60-115)
[2023-01-26 11:34] LABS: Adenovirus F 40/41 Not Detected (Not Detect.); Astrovirus Not Detected (Not Detect.); Campylobacter Not Detected (Not Detect.); Cryptosporidium Not Detected (Not Detect.); Cyclospora cayetanensis Not Detected (Not Detect.); E. coli EAEC Not Detected (Not Detect.); E. coli EPEC Not Detected (Not Detect.); E. coli ETEC Not Detected (Not Detect.); E. coli STEC Not Detected (Not Detect.); Entamoeba histolytica Not Detected (Not Detect.); Giardia lamblia Not Detected (Not Detect.); Norovirus GI/GII Not Detected (Not Detect.); Plesiomonas shigelloides Not Detected (Not Detect.); Rotavirus A Not Detected (Not Detect.); Salmonella Not Detected (Not Detect.); Sapovirus Not Detected (Not Detect.); Shigella sp./EIEC Not Detected (Not Detect.); Vibrio Not Detected (Not Detect.); Vibrio Cholerae Not Detected (Not Detect.); Yersinia enterocolitica Not Detected (Not Detect.)
[2023-01-26 15:45] VITALS: BP 130/68; PULSE 58; RESP 14; TEMP 36.1; O2SAT 95
[2023-01-26 16:22] LABS: Glucose, Whole Blood 127 mg/dL (60-115)
[2023-01-26 19:28] VITALS: BP 134/72; PULSE 60; RESP 14; TEMP 36.6; O2SAT 95
[2023-01-26] MEDS: Enoxaparin Sodium 30 MG/0.3 ML SYRINGE SUBCUT (20:36)
[2023-01-26] MEDS: 0.9 % Sodium Chloride Flush 3 ML SYRINGE IVFLUSH (20:37)
[2023-01-26] MEDS: Atorvastatin Calcium 80 MG TABLET PO (20:37)
[2023-01-26 20:42] LABS: Glucose, Whole Blood 164 mg/dL (60-115)
[2023-01-26 23:26] VITALS: BP 119/59; PULSE 55; RESP 12; TEMP 36.3; O2SAT 97
[2023-01-27 03:55] VITALS: BP 126/61; PULSE 57; RESP 14; TEMP 36.1; O2SAT 93
[2023-01-27 03:59] VITALS: BP 126/61; PULSE 56; RESP 14; TEMP 36.1; O2SAT 93
[2023-01-27] MEDS: Omeprazole 20 MG CAPSULE.DR PO (06:21)
[2023-01-27 08:00] VITALS: BP 120/68; PULSE 67; RESP 17; TEMP 36.6; O2SAT 94
[2023-01-27 08:10] LABS: Anion Gap 14 (12-20); Blood Urea Nitrogen 18 mg/dL (9-16); Calcium 8.3 mg/dL (8.4-10.2); Carbon Dioxide 27 mmol/L (22-29); Chloride 104 mmol/L (96-108); Estimated Glomerular Filt Rate > 60; Glucose Random 151 mg/dL (60-115); Potassium 3.9 mmol/L (3.3-5.1); Sodium 141 mmol/L (135-145)
[2023-01-27] MEDS: carvediloL 12.5 MG TABLET PO (09:14)
[2023-01-27] MEDS: Isosorbide Mononitrate 60 MG TAB.ER.24H PO (09:14)
[2023-01-27] MEDS: Isosorbide Mononitrate 30 MG TAB.ER.24H PO (09:19)
--- NOTE | 2023-01-27 11:00 | PM.DS ---
DS: Providers Provider Date of Service: 01/27/23 Date of admission: 01/25/23 21:22 Primary care physician: Suman Sosa MD DS: Diagnosis Discharge Diagnosis (1) Acute kidney injury: Status: Acute (2) COVID-19: Status: Acute (3) Weakness: Status: Acute DS: Summary Hospital Course Hospital Course: History of presenting illness Date of Service: 01/25/23 Attending physician on admission: Jody Fang Chief Complaint: Generalized weakness, diarrhea Pt is a 78-year-old female with a PMH significant for?HTN, HLD, CAD, clq-bekwosj-bvvtxoevx diabetes, and GERD who presents to the ED with?generalized weakness and diarrhea for the past 1-2 weeks.? Patient states that she first began feeling weak, especially in her arms and legs. Has been unable to stand for long or cook herself a meal. Soon after developed non-bloody diarrhea that would come and go, usually 2-3 episodes per day. Diarrhea was on non-consecutive days, usually with 1-2 days between episodes. Pt has noted decreased p.o. intake, especially of solids. Says she feels lousy and has had all-over body aches. Pt also reports some burning with urination for past 1-2 weeks. Of note, pt states she tripped and fell in her kitchen two days ago. Did not have her phone and was on the ground for nearly two hours before she could raise herself. Denies fever, chills, nausea, vomiting. No abdominal pain. Denies chest pain/pressure, palpitations. No shortness of breath, difficulty breathing, cough. ? In the ED patient was afebrile but hypotensive at 79/57, improved to 106/56 after 1L IVF. Labs were significant for no leukocytosis, creatinine of 2.62, BUN 59, random glucose of 198, creatinine kinase of 254, initial troponin high at 18.0 with repeat down trending to 14.1.? Patient tested positive for COVID. EKG demonstrated sinus bradycardia with a rate of 56, RBBB, ST depression in lead I, T-wave inversions in 3, AVF, V1-V5. Pt was treated with 2L IVF. Pt will be admitted to the hospital for treatment and further evaluation of ALIZA and generalized weakness. Hospital course 78-year-old female with a PMH significant for?HTN, HLD, CAD, hck-tcwbmbs-rbwephhjz diabetes, and GERD who presents to the ED with?generalized weakness and diarrhea for the past 1-2 weeks.? Patient will be admitted to the hospital for treatment and further evaluation of ALIZA, diarrhea, and generalized weakness. Generalized weakness and acute kidney injury likely due to dehydration related to diarrhea with underlying COVID infection, patient treated with IV fluids, analgesics stool studies including C diff and stool panel came back negative patient remained afebrile, with normal white cell count, since admission patient had no recurrent bout of nausea, vomiting,or diarrhea, weakness improved ,renal function returned to baseline, since patient is feeling better and is eager to be discharged home will send her home with recommendation to continue face mask for total 5 days. Abnormal EKG, EKG demonstrated sinus bradycardia with a rate of 56, RBBB, and nonspecific ST and T-wave changes in inferior lateral leads patient had no chest pain ,troponins , flat, recommend to continue nitrates statin and Coreg. Hypertension, noted to have soft blood pressures on arrival, continued on Coreg and nitrates, losartan and amlodipine held recommend to follow blood pressure closely and resume home medications if systolic blood pressure greater than 135. Dysuria improved UA benign GERDContinue omeprazole HLD Continue statin Time Spent with Patient Time attestation: Total time managing care of this patient today ____ minutes. Discharge coordination time: Greater than 30 minutes Quality: Safe Use of Opioids Does Pt have an Active Cancer Diagnosis on the Problem List?: No Quality: Stroke Does the patient have a stroke diagnosis?: No Physical Exam Vital Signs: Vital Signs: Last Vital Signs Temp 97.8 F 01/27/23 08:00 Pulse 67 01/27/23 08:00 Resp 17 01/27/23 08:00 BP 120/68 01/27/23 08:00 Pulse Ox 94 01/27/23 08:00 O2 Del Method Room Air 01/27/23 08:00 BMI result Body Mass Index 41.1 Const: Other: General awake alert x3, resting comfortably in no acute distress.? Neck supple no JVD. CVS? regular rate rhythm, Respiratory lungs clear to auscultation, no respiratory distress, no wheeze, no rhonchi. Gastrointestinal abdomen soft, nontender, bowel sounds audible, no guarding , no rigidity. Extremities no edema. Neuro nonfocal Skin no rash Psych appropriate affect DS: Data Data Completed and Pending Labs on day of discharge: Laboratory Results - last 24 hr 01/25/23 01/26/23 01/26/23 21:23 11:18 16:15 Sodium Potassium Chloride Carbon Dioxide Anion Gap BUN Creatinine Estim Creat Clear Calc Estimated GFR POC Glucose 131 H 127 H Random Glucose Calcium Stl C. cayetanensis PCR Not Detected Stool Rotavirus A PCR Not Detected Stl Adenov F 40/41 PCR Not Detected Stool Astrovirus (PCR) Not Detected Stool Campylobacter PCR Not Detected Stool Cryptosporidium PCR Not Detected Stl Sh Tox Pr E STEC PCR Not Detected Stool E coli O157 PCR Not applicable Stl Enterotoxigenic E PCR Not Detected Stool EPEC (PCR) Not Detected Stool EAEC (PCR) Not Detected Stl E. histolytica PCR Not Detected Stool Giardia Lamblia PCR Not Detected Stl P. shigelloides PCR Not Detected Stool Salmonella PCR Not Detected Stool Sapovirus (PCR) Not Detected Stl Shigella/EIEC PCR Not Detected St Y.enterocolitica PCR Not Detected Stool Vibrio (PCR) Not Detected Stl Vibrio cholerae PCR Not Detected Stl Norovirus GI/GII PCR Not Detected 01/26/23 01/27/23 20:31 07:05 Sodium 141 Potassium 3.9 Chloride 104 Carbon Dioxide 27 Anion Gap 14 BUN 18 H Creatinine 0.85 Estim Creat Clear Calc 63.0 Estimated GFR > 60 POC Glucose 164 H Random Glucose 151 H Calcium 8.3 L Stl C. cayetanensis PCR Stool Rotavirus A PCR Stl Adenov F 40/41 PCR Stool Astrovirus (PCR) Stool Campylobacter PCR Stool Cryptosporidium PCR Stl Sh Tox Pr E STEC PCR Stool E coli O157 PCR Stl Enterotoxigenic E PCR Stool EPEC (PCR) Stool EAEC (PCR) Stl E. histolytica PCR Stool Giardia Lamblia PCR Stl P. shigelloides PCR Stool Salmonella PCR Stool Sapovirus (PCR) Stl Shigella/EIEC PCR St Y.enterocolitica PCR Stool Vibrio (PCR) Stl Vibrio cholerae PCR Stl Norovirus GI/GII PCR Discharge Plan Discharge Anticipated Discharge Date/Time: 01/27/23 10:52 Patient Disposition: Home, Self-Care Discharge Diagnosis: Acute kidney injury Generalized weakness Diarrhea COVID-19 Referrals: Suman Sosa MD [Primary Care Provider] - 1 Week Discharge Medications: Continued carvedilol 12.5 mg Tablet 12.5 mg PO BID Rx Instructions: must administer with a meal/food isosorbide mononitrate 30 mg Tablet Extended Release 24 Hr 30 mg PO DAILY isosorbide mononitrate 60 mg Tablet Extended Release 24 Hr 60 mg PO DAILY omeprazole 20 mg Tablet,Delayed Release (Dr/Ec) 20 mg PO DAILY atorvastatin 80 mg Tablet 80 mg PO BEDTIME nitroglycerin 0.4 mg Tablet, Sublingual 0.4 mg SUBLINGUAL Q5M PRN (Reason: Chest Pain) Rx Instructions: do not exceed 3 doses per episode metformin 500 mg Tablet Extended Release 24 Hr 500 mg PO BID Discontinued amlodipine 5 mg Tablet 5 mg PO BID losartan 100 mg Tablet 100 mg PO DAILY Discharge Orders: Discharge Order (Routine); Ordered 01/27/23 Ordered By: Jennifer Benoit Diet: Low fat, low cholesterol Activity on Discharge: As tolerated Stand Alone Forms: Patient Portal Discharge page Care Plan Goals: Diarrhea resolved, weakness improving stable oxygenation, Continue face mask for for next few days Monitor blood pressure if noted to have systolic blood pressure greater than 135 resume losartan and amlodipine Health Concerns: Coronary artery disease follow low-cholesterol diet Plan of Treatment: Outpatient follow-up with primary care physician call for appointment. Assessment: as above
--- NOTE | 2023-01-27 11:32 | MHC.CM.PN ---
DP: IMM DELIVERED PT HAS BEEN MEDICALLY CLEARED FOR DC HOME, NO SERVICES. PT HAS OWN RIDE HOME.
[2023-01-27 11:56] LABS: Glucose, Whole Blood 134 mg/dL (60-115)
== END 2023-01-27 13:14 | disposition home or self-care (01) | DRG 178 ==
LOC: HO.ED 18:10 → HO.EDOVER 21:28 → HO.IMC 21:34
PROVIDERS: Physician Assistant; Physician Assistant Medical; Admitting Provider Student in an Organized Health Care Education/Training Program; Emergency Provider Emergency Medicine Emergency Medical Services; PCP Internal Medicine; Visit Provider Hospitalist
DX: U07.1 COVID-19 (principal); A08.39 Other viral enteritis; N17.9 Acute kidney failure, unspecified; I25.110 Atherosclerotic heart disease of native coronary artery with unstable angina pectoris; Z68.41 Body mass index [BMI] 40.0-44.9, adult; I24.8 Other forms of acute ischemic heart disease; E86.0 Dehydration; E78.5 Hyperlipidemia, unspecified; I95.9 Hypotension, unspecified; E66.01 Morbid (severe) obesity due to excess calories; I45.10 Unspecified right bundle-branch block; R00.1 Bradycardia, unspecified; Z28.311 Partially vaccinated for COVID-19; Z87.891 Personal history of nicotine dependence; Z79.84 Long term (current) use of oral hypoglycemic drugs; Z79.899 Other long term (current) drug therapy
CPT/HCPCS: 0241U; 36415; 80048; 80076; 81001; 82550; 82947; 83690; 83735; 83880; 84484; 85025; 87493; 87507; 93005; 99285; J1650